=== PATIENT | male | born 1940 | race Caucasian/White ===

== ENCOUNTER → 2024-02-28 12:04 | Outpatient (REF) | payer OTHER, SELFPAY | LOC: HWRAD 12:04 | PROVIDERS: ATTENDING PHYSICIAN Internal Medicine | DX: R07.81 Pleurodynia (principal) | CPT/HCPCS: 71101 ==

== ENCOUNTER → 2024-04-13 19:18 | Outpatient (REF) | payer OTHER, SELFPAY | LOC: MRI 3T 19:18 | PROVIDERS: ATTENDING PHYSICIAN Specialist; FAMILY PHYSICIAN Internal Medicine | DX: R97.20 Elevated prostate specific antigen [PSA] (principal) | CPT/HCPCS: 72197; A9575 ==

== ENCOUNTER 2024-05-13 06:03 | Day surgery (SDC) | payer OTHER, SELFPAY ==
[2024-05-13 06:27] VITALS: BMI 26.4
[2024-05-13 06:29] VITALS: BP 148/78; BMI 26.4
[2024-05-13] MEDS: NEOMYCIN ENEMA 1 BOTTLE RECTAL (06:54)
[2024-05-13] MEDS: NORMOSOL-R 1000 IV (06:55)
[2024-05-13 09:00] VITALS: BP 113/69
[2024-05-13 09:15] VITALS: BP 116/79
[2024-05-13 09:30] VITALS: BP 130/67
[2024-05-13 09:45] VITALS: BP 136/74
[2024-05-13 09:54] VITALS: BP 126/70
== END 2024-05-13 10:13 | disposition home or self-care (01) ==
LOC: SDS 06:03
PROVIDERS: ATTENDING PHYSICIAN Specialist; REFERRING PHYSICIAN Surgery
DX: Z12.11 Encounter for screening for malignant neoplasm of colon (principal); D12.3 Benign neoplasm of transverse colon; D12.7 Benign neoplasm of rectosigmoid junction; K51.40 Inflammatory polyps of colon without complications; K57.30 Diverticulosis of large intestine without perforation or abscess without bleeding; C61 Malignant neoplasm of prostate; R97.20 Elevated prostate specific antigen [PSA]; R93.89 Abnormal findings on diagnostic imaging of other specified body structures
CPT/HCPCS: 55700; 45385; 45381; 88305; 76998; J1580

== ENCOUNTER → 2024-06-22 11:45 | Outpatient (REF) | payer OTHER, SELFPAY | LOC: PET 11:45 | PROVIDERS: ATTENDING PHYSICIAN Radiology Radiation Oncology | DX: C61 Malignant neoplasm of prostate (principal) | CPT/HCPCS: 78815 ==

== ENCOUNTER 2025-04-02 08:57 | Outpatient (RCR) | payer OTHER, SELFPAY | END 2025-04-02 23:59 | disposition home or self-care (01) | LOC: RPT 08:57 | PROVIDERS: ATTENDING PHYSICIAN Family Medicine Geriatric Medicine; FAMILY PHYSICIAN Internal Medicine | DX: C61 Malignant neoplasm of prostate (principal); M62.89 Other specified disorders of muscle; Z79.818 Long term (current) use of other agents affecting estrogen receptors and estrogen levels; Z73.6 Limitation of activities due to disability | CPT/HCPCS: 97110; 97112; 97163; 97530 ==

== ENCOUNTER 2025-05-07 13:38 | Outpatient (RCR) | payer OTHER, SELFPAY | END 2025-05-07 23:59 | disposition home or self-care (01) | LOC: RPT 13:38 | PROVIDERS: ATTENDING PHYSICIAN Family Medicine Geriatric Medicine; FAMILY PHYSICIAN Internal Medicine | DX: C61 Malignant neoplasm of prostate (principal); M62.89 Other specified disorders of muscle; Z79.818 Long term (current) use of other agents affecting estrogen receptors and estrogen levels; Z73.6 Limitation of activities due to disability | CPT/HCPCS: 97110; 97112; 97530 ==